=== PATIENT | female | born 1950 | race Caucasian/White ===

== ENCOUNTER 2017-01-24 14:31 | Emergency (ER) | payer OTHER, MEDICARE ==
[2017-01-24 14:40] VITALS: TEMP 98.2; BMI 23.3
[2017-01-24] MEDS ORDERED: SODIUM CHLORIDE 1,000 ML IV STA (16:25)
[2017-01-24] MEDS ORDERED: ONDANSETRON 4 MG/2 ML VIAL IVPUSH ONE (16:25)
[2017-01-24] MEDS ORDERED: ONDANSETRON 4 MG/2 ML VIAL ONE (16:35)
[2017-01-24 16:45] LABS: BASOPHIL 0.6 % (0-2.0); EOSINOPHIL 1.4 % (0-4.5); MCH 27.7 pg (25.7-33.7); MCHC 33.9 g/dl (32.0-36.0); MEAN CELL VOLUME 81.7 fl (80-96); MEAN PLT VOLUME 7.1 fl (7.5-11.1); NEUTROPHILS 51.2 % (42.8-82.8); PLATELET COUNT 286 K/MM3 (134-434); RDW 13.1 % (11.6-15.6); WHITE BLOOD COUNT 6.4 K/mm3 (4.0-10.0)
--- NOTE | 2017-01-24 17:00 | PDOC ---
History of Present Illness - General History Source: Patient, Old Records Exam Limitations: No Limitations <Bre Melchor - Last Filed: 01/24/17 16:58> - General History Source: Patient Exam Limitations: No Limitations - History of Present Illness Initial Comments: The patient is a 66 yo F with a past medical history significant for Hx of bladder cyst, kidney stones who presents with nausea, vomiting and abdominal pain for 10 days. The patient notes she hasnt been able to keep anything down for the past 3 days. The patient describes the pain as a burning sensation primarily located in her LUQ. She notes it is worse when shes lying down. The patient states shes been trying to eat oatmeal and water and has been unsuccessful. She denies fevers, chills and cough. The patient denies diarrhea and notes her last BM was normal this morning. She notes she had an abdominal US at her [facility] office on Saturday which was negative. She also notes associated abdominal distension for the past 10 days. The patient denies dysuria, hematuria , urgency and frequency. <SterlingfabiolageraldCheryle - Last Filed: 01/24/17 17:02> - General Chief Complaint: Pain, Acute Stated Complaint: ABD PAIN Time Seen by Provider: 01/24/17 16:21 Past History - Past Medical History GI Disorders: Yes (BLADDER CYST) - Psycho/Social/Smoking Cessation Hx Suicidal Ideation: No Smoking History: Never smoked <Bre Melchor - Last Filed: 01/24/17 16:58> <Cheryle Tobias - Last Filed: 01/24/17 17:02> - Past Medical History Allergies/Adverse Reactions: Allergies Allergy/AdvReac Type Severity Reaction Status Date / Time No Known Allergies Allergy Verified 01/24/17 14:36 Review of Systems - Review of Systems Able to Perform ROS?: Yes Comments:: CONSTITUTIONAL: Absent: fever, chills, diaphoresis, generalized weakness, malaise, loss of appetite HEENT: Absent: rhinorrhea, nasal congestion, throat pain, throat swelling, difficulty swallowing, mouth swelling, ear pain, eye pain, visual Changes CARDIOVASCULAR: Absent: chest pain, syncope, palpitations, irregular heart rate, lightheadedness , peripheral edema RESPIRATORY: Absent: cough, shortness of breath, dyspnea with exertion, orthopnea, wheezing, stridor, hemoptysis GASTROINTESTINAL: +nausea, vomiting, abdominal pain, abdominal distension Absent:diarrhea, constipation, melena, hematochezia GENITOURINARY: Absent: dysuria, frequency, urgency, hesitancy, hematuria, flank pain, genital pain MUSCULOSKELETAL: Absent: myalgia, arthralgia, joint swelling SKIN: Absent: rash, itching, pallor NEUROLOGIC: Absent: headache, focal weakness or paresthesias, dizziness, unsteady gait, seizure, mental status changes, bladder or bowel incontinence PSYCHIATRIC: Absent: anxiety, depression, suicidal or homicidal ideation, hallucinations. <Cheryle Tobias - Last Filed: 01/24/17 17:02> *Physical Exam - Vital Signs Last Vital Signs Temp Pulse Resp BP Pulse Ox 98.2 F 77 19 138/82 98 01/24/17 14:36 01/24/17 14:36 01/24/17 14:36 01/24/17 14:36 01/24/17 14:36 <Bre Melchor - Last Filed: 01/24/17 16:58> - Vital Signs Last Vital Signs Temp Pulse Resp BP Pulse Ox 98.2 F 77 19 138/82 98 01/24/17 14:36 01/24/17 14:36 01/24/17 14:36 01/24/17 14:36 01/24/17 14:36 - Physical Exam Comments: GENERAL: Well developed, well nourished. Awake and alert. No acute distress. HEENT: Normocephalic, atraumatic. PERRLA, EOMI. No conjunctival pallor. Sclera are non- icteric. Moist mucous membranes. Oropharynx is clear. NECK: Supple. Full ROM. No JVD. Carotid pulses 2+ and symmetric, without bruits. No thyromegaly. No lymphadenopathy. CARDIOVASCULAR: Regular rate and rhythm. No murmurs, rubs, or gallops. Distal pulses are 2+ and symmetric. PULMONARY: No evidence of respiratory distress. Lungs clear to auscultation bilaterally. No wheezing, rales or rhonchi. ABDOMINAL: Soft. Non-tender. mildly distended. No rebound or guarding. No organomegaly. Normoactive bowel sounds. MUSCULOSKELETAL Normal range of motion at all joints. No bony deformities or tenderness. No CVA tenderness. EXTREMITIES: No cyanosis. No clubbing. No edema. No calf tenderness. SKIN: Warm and dry. Normal capillary refill. No rashes. No jaundice. NEUROLOGICAL: No gross focal neurological deficits. PSYCHIATRIC: Cooperative. Good eye contact. Appropriate mood and affect. <Cheryle Tobias - Last Filed: 01/24/17 17:02> ED Treatment Course - LABORATORY CBC & Chemistry Diagram: 01/24/17 16:30 01/24/17 16:30 - ADDITIONAL ORDERS Additional order review: 01/24/17 16:30 RBC 4.82 MCV 81.7 MCHC 33.9 RDW 13.1 MPV 7.1 L Neutrophils % 51.2 Lymphocytes % 39.2 Monocytes % 7.6 Eosinophils % 1.4 Basophils % 0.6 - RADIOLOGY Radiology Studies Ordered: Category Date Time Status CHEST X-RAY PORTABLE* [RAD] Stat Radiology 01/24/17 16:25 Ordered - Medications Given in the ED: ED Medications Discontinued Medications Generic Name Dose Route Start Last Admin Trade Name Freq PRN Reason Stop Dose Admin Ondansetron HCl 4 mg 01/24/17 16:25 01/24/17 16:33 Zofran Injection IVPUSH 01/24/17 16:26 4 mg ONCE ONE Administration <Bre Melchor - Last Filed: 01/24/17 16:58> - LABORATORY CBC & Chemistry Diagram: 01/24/17 16:30 01/24/17 16:30 - ADDITIONAL ORDERS Additional order review: 01/24/17 16:30 RBC 4.82 MCV 81.7 MCHC 33.9 RDW 13.1 MPV 7.1 L Neutrophils % 51.2 Lymphocytes % 39.2 Monocytes % 7.6 Eosinophils % 1.4 Basophils % 0.6 - Medications Given in the ED: ED Medications Discontinued Medications Generic Name Dose Route Start Last Admin Trade Name Freq PRN Reason Stop Dose Admin Ondansetron HCl 4 mg 01/24/17 16:25 01/24/17 16:33 Zofran Injection IVPUSH 01/24/17 16:26 4 mg ONCE ONE Administration <Cheryle Tobias - Last Filed: 01/24/17 17:02> Medical Decision Making - Medical Decision Making 01/24/17 16:58 66-year-old female with kidney history of kidney stones presents to the emergency department with a 10 day history of abdominal pain and bloating and three-day history of nausea and vomiting. Differential diagnosis includes but is not limited to: Gastritis, pancreatitis, GERD, nephrolithiasis, UTI, dehydration, electrolyte abnormality, toxic/metabolic derangement, atypical presentation of ACS. Plan: 1. Labs 2. IV fluids for hydration 3. EKG 4. Antiemetics 5. Observe and reevaluate 6. Will likely related and abdominal imaging study like CT scan to further evaluate above-mentioned disease entities <Bre Melchor - Last Filed: 01/24/17 16:58> *DC/Admit/Observation/Transfer - Attestations Physician Attestion: 01/24/17 16:59 I, Dr. Bre Melchor, attest that the scribes documentation that appears above has been prepared under my direction and personally reviewed by me in its entirety. I confirmed that the note above accurately reflects all work, treatment, procedures, and medical decision-making performed by me. <Bre Melchor - Last Filed: 01/24/17 16:58> - Attestations Scribe Attestion: Documentation prepared by Cheryle Tobias, acting as bilingual medical receptionist for Bre Melchor MD, /DO. <Cheryle Tobias - Last Filed: 01/24/17 17:02> Diagnosis at time of Disposition: Abdominal pain, Nausea and vomiting - Referrals Referrals: Sarai Sotelo MD [Primary Care Provider] -
[2017-01-24 17:17] LABS: ALBUMIN 4.5 g/dl (3.4-5.0); ANION GAP 6 (8-16); BILIRUBIN,TOTAL 0.4 mg/dL (0.2-1.0); CALCIUM 9.6 mg/dL (8.5-10.1); CO2 31 mmol/L (21-32); CREATININE 0.7 mg/dL (0.55-1.02); GLUCOSE,RANDOM 90 mg/dL (74-106); MAGNESIUM 2.3 mg/dL (1.8-2.4); PHOSPHOROUS 3.5 mg/dL (2.5-4.9); SGOT/AST 21 U/L (15-37); SGPT/ALT 30 U/L (12-78); TOT PROT 8.2 g/dl (6.4-8.2)
[2017-01-24 17:18] LABS: ALK PHOS 79 U/L (45-117); CPK 166 IU/L (26-192); TROPONIN I < 0.02 ng/ml (0.00-0.05)
[2017-01-24 18:13] LABS: URINE APPEARANCE CLEAR; URINE BILIRUBIN NEGATIVE (NEGATIVE); URINE BLOOD 2+ (NEGATIVE); URINE COLOR COLORLESS; URINE GLUCOSE (UA) NEGATIVE (NEGATIVE); URINE KETONE NEGATIVE (NEGATIVE); URINE LEUK ESTERASE TRACE (NEGATIVE); URINE NITRITE NEGATIVE (NEGATIVE); URINE PROTEIN NEGATIVE (NEGATIVE); URINE UROBILINOGEN NEGATIVE mg/dL (0.2-1.0)
[2017-01-24 18:16] LABS: URINE RBC 1 /hpf (0-3); URINE WBC 7 /hpf (3-5)
[2017-01-24 18:31] VITALS: BP 131/85; PULSE 63
[2017-01-24] MEDS ORDERED: metroNIDAZOLE 250 MG TABLET PO ONE (20:45)
[2017-01-24] MEDS ORDERED: LEVOFLOXACIN 500 MG TABLET (FP) PO ONE (20:45)
--- NOTE | 2017-01-24 20:47 | PDOC ---
*Physical Exam - Vital Signs Last Vital Signs Temp Pulse Resp BP Pulse Ox 98.2 F 63 19 131/85 98 01/24/17 14:36 01/24/17 18:30 01/24/17 14:36 01/24/17 18:30 01/24/17 18:30 ED Treatment Course - LABORATORY CBC & Chemistry Diagram: 01/24/17 16:30 01/24/17 16:30 - ADDITIONAL ORDERS Additional order review: Laboratory Results 01/24/17 01/24/17 17:13 16:30 Sodium 138 Potassium 4.0 Chloride 101 Carbon Dioxide 31 Anion Gap 6 L BUN 17 Creatinine 0.7 Creat Clearance w eGFR > 60 Random Glucose 90 Calcium 9.6 Phosphorus 3.5 Magnesium 2.3 Total Bilirubin 0.4 AST 21 ALT 30 Alkaline Phosphatase 79 Creatine Kinase 166 Creatine Kinase Index 0.9 CK-MB (CK-2) 1.656 Troponin I < 0.02 Total Protein 8.2 Albumin 4.5 Lipase 200 Urine Color Colorless Urine Appearance Clear Urine pH 7.0 Ur Specific [place] 1.010 Urine Protein Negative Urine Glucose (UA) Negative Urine Ketones Negative Urine Blood 2+ H Urine Nitrite Negative Urine Bilirubin Negative Urine Urobilinogen Negative Ur Leukocyte Esterase Trace Urine RBC 1 Urine WBC 7 01/24/17 16:30 RBC 4.82 MCV 81.7 MCHC 33.9 RDW 13.1 MPV 7.1 L Neutrophils % 51.2 Lymphocytes % 39.2 Monocytes % 7.6 Eosinophils % 1.4 Basophils % 0.6 - Medications Given in the ED: ED Medications Discontinued Medications Generic Name Dose Route Start Last Admin Trade Name Freq PRN Reason Stop Dose Admin Sodium Chloride 1,000 mls @ 1,000 mls/hr 01/24/17 16:25 01/24/17 16:32 Normal Saline - IV 01/24/17 17:24 1,000 mls/hr ASDIR STA Administration Ondansetron HCl 4 mg 01/24/17 16:25 01/24/17 16:33 Zofran Injection IVPUSH 01/24/17 16:26 4 mg ONCE ONE Administration *DC/Admit/Observation/Transfer Diagnosis at time of Disposition: Abdominal pain, Nausea and vomiting, Panniculitis - Discharge Dispostion Disposition: HOME Condition at time of disposition: Stable Admit: No - Referrals Referrals: Sarai Sotelo MD [Primary Care Provider] - Maribel Glover MD [Staff Physician] - - Patient Instructions Printed Discharge Instructions: DI for Abdominal Pain-Adult - Post Discharge Activity
[2017-01-24] MEDS ORDERED: metroNIDAZOLE 250 MG TABLET ONE (20:59)
[2017-01-24] MEDS ORDERED: LEVOFLOXACIN 500 MG TABLET (FP) ONE (20:59)
--- NOTE | 2017-01-25 12:30 | EKG ---
Test Reason : Blood Pressure : / mmHG Vent. Rate : 065 BPM Atrial Rate : 065 BPM P-R Int : 170 ms QRS Dur : 080 ms QT Int : 436 ms P-R-T Axes : 037 054 019 degrees QTc Int : 453 ms NORMAL SINUS RHYTHM NORMAL ECG NO PREVIOUS ECGS AVAILABLE Confirmed by MD DENNIS, JUAN ([id number]) on 01/25/2017 12:30:15 PM Referred By: Confirmed By:JUAN COLLINS MD
== END 2017-01-24 21:08 | disposition home or self-care (01) ==
LOC: JER 14:31
PROC: 3E033GC Introduction of Other Therapeutic Substance into Peripheral Vein, Percutaneous Approach (ICD-10-PCS; principal; 2017-01-24)
PROC: 3E0337Z Introduction of Electrolytic and Water Balance Substance into Peripheral Vein, Percutaneous Approach (ICD-10-PCS; 2017-01-24)
DX: R11.2 Nausea with vomiting, unspecified (principal); R10.31 Right lower quadrant pain; Z87.442 Personal history of urinary calculi
CPT/HCPCS: 36415; 71010-TC; 74176-TC; 80053; 81003; 81015; 82553; 83690; 83735; 84100; 84484; 85025; 93005; 93010; 99282-25

== ENCOUNTER 2017-04-12 09:00 | Day surgery (SDC) | payer OTHER, MEDICARE ==
[2017-04-11 14:28] VITALS: BMI 21.8
[2017-04-12 10:57] VITALS: TEMP 98.6
[2017-04-12 11:56] VITALS: BP 140/74; PULSE 58
--- NOTE | 2017-04-16 13:53 | PATH ---
Surgical Pathology Report Patient Name: JORDIN HANCOCK [facility]. Rec. #: [id number] /Age/Gender: 1950 (Age: 66) / F Account: [id number] Location: U-ENDOSCOPY Taken: 04/12/2017 Received: 04/12/2017 Reported: 04/16/2017 Physicians: Maribel Glover M.D. Specimen(s) Received A: BX 2ND PORTION OF DUODENUM AND BULB B: BX BODY C: BX ANTRUM Clinical History Abdominal pain, rule out ulcer Gastritis (nodular antral mucosa, atrophic gastric body mucosa ?MALT) Final Diagnosis A. DUODENUM, SECOND PORTION AND DUODENAL BULB, BIOPSY: SMALL BOWEL/DUODENAL MUCOSA WITHOUT SIGNIFICANT PATHOLOGIC FINDINGS. B. STOMACH, BODY, BIOPSY: GASTRIC BODY MUCOSA WITH SEVERE CHRONIC ACTIVE GASTRITIS AND FOCAL ULCERATION. IMMUNOHISTOCHEMICAL STAIN FOR H. PYLORI IS POSITIVE (NUMEROUS). SEE COMMENT. C. STOMACH, ANTRUM, BIOPSY: GASTRIC ANTRAL MUCOSA WITH SEVERE CHRONIC ACTIVE GASTRITIS. IMMUNOHISTOCHEMICAL STAIN FOR H. PYLORI IS POSITIVE (NUMEROUS) SEE COMMENT. Comment: Immunohistochemical stains performed and interpreted at [facility] on part C show shows an acute and chronic inflammatory infiltrate. Few lymphoid aggregates are noted and comprised of a heterogeneous population of CD20+ B cells admixed with CD3+ T cells. Overall findings favor a reactive process. Suggest clinical/radiological correlation. Electronically Signed Cheryle Case M.D. Gross Description A. Received in formalin, labeled "second portion of duodenum and bulb" are 3 posada, irregular portions of soft tissue averaging 0.3 cm. in greatest dimension. The specimens are submitted in toto in one cassette. B. Received in formalin, labeled "body" are 2 posada, irregular portions of soft tissue measuring 0.3 and 0.4 cm. in greatest dimension. The specimens are submitted in toto in one cassette. C. Received in formalin, labeled "biopsy antrum" are 7 posada, irregular portions of soft tissue ranging from 0.1-0.4 cm. in greatest dimension. The specimens are submitted in toto in one cassette. /04/12/201704/12/2017
== END 2017-04-12 11:56 | disposition home or self-care (01) ==
LOC: JASU-ENDO 09:00
PROVIDERS: ATTEND Internal Medicine Gastroenterology
PROC: 0DB68ZX Excision of Stomach, Via Natural or Artificial Opening Endoscopic, Diagnostic (ICD-10-PCS; 2017-04-12)
PROC: 0DB98ZX Excision of Duodenum, Via Natural or Artificial Opening Endoscopic, Diagnostic (ICD-10-PCS; principal; 2017-04-12 10:00)
DX: K31.9 Disease of stomach and duodenum, unspecified (principal); R10.9 Unspecified abdominal pain; R12 Heartburn; R11.0 Nausea
CPT/HCPCS: 88305-TC; 88341-TC; 88342-TC